=== PATIENT | male | born 1995 | race Caucasian/White ===

== ENCOUNTER 2019-03-07 16:17 | Emergency (ER) | payer MEDICAID ==
[~2019-03-07] VITALS: Ht 180.3 cm; Wt 98.6 kg
--- NOTE | 2019-03-07 16:32 | NUR ---
patient arrives to er with chest pressure and sob exertion that began yesterday. he went to [facility] and had bloodwork and xray but left before ct. patient has continued chest pressure and sob today so he came back to [place]. on monitor
[2019-03-07 17:36] LABS: BASOPHILS # (AUTO) 0.04 x10^3/uL (0-0.1); BASOPHILS % (AUTO) 0 % (0-1); EOSINOPHILS # (AUTO) 0.09 x10^3/uL (0-0.4); EOSINOPHILS % (AUTO) 1 % (1-7); LYMPHOCYTES # (AUTO) 3.32 x10^3/uL (1-3.4); LYMPHOCYTES % (AUTO) 31 % (22-44); MD NO; MEAN CORPUSCULAR HEMOGLOBIN 31.8 pg (27.5-34.5); MEAN CORPUSCULAR HGB CONC 34.2 g/dL (33.2-36.2); MEAN CORPUSCULAR VOLUME 92.8 fL (81-97); MEAN PLATELET VOLUME 7.4 fL (7.4-10.4); MONOCYTES # (AUTO) 0.91 x10^3/uL (0.2-0.8); MONOCYTES % (AUTO) 9 % (2-9); NEUTROPHILS # (AUTO) 6.33 x10^3/uL (1.8-6.8); NEUTROPHILS % (AUTO) 59 % (42-75); PLATELET COUNT 307 x10^3/uL (130-400); RED BLOOD COUNT 5.09 x10^6/uL (4.38-5.82); RED CELL DISTRIBUTION WIDTH 13.4 % (9.4-14.8)
--- NOTE | 2019-03-07 17:40 | NUR ---
patient waiting for recheck
[2019-03-07 17:47] LABS: ANION GAP 6 mmol/L (5-15); CALCIUM 9.2 mg/dL (8.5-10.1); CHLORIDE 116 mmol/L (98-107); CREATININE 0.79 mg/dL (0.7-1.3)
[2019-03-07 17:51] LABS: TROPONIN I < 0.015 ng/mL (0.000-0.045)
[2019-03-07 18:08] VITALS: BP 132/78
== END 2019-03-07 18:16 | disposition home or self-care (01) ==
LOC: ED 18:10
DX: R07.89 Other chest pain (principal); R42 Dizziness and giddiness
CPT/HCPCS: 36415; 80048; 84484; 85025; 85379; 93005; 99284

== ENCOUNTER 2019-03-13 22:33 | Emergency (ER) | payer MEDICAID ==
[~2019-03-13] VITALS: Ht 182.9 cm; Wt 98.4 kg
--- NOTE | 2019-03-13 23:11 | NUR ---
Patient states he was at work when he experienced SOB, CP, numbness/tinging in hands. He has experienced symptoms similar to this in the past but not to this extent. Pain is substernal and becomes slightly worse with deep breathing. He rates the pain as a 3/10 on the pain scale. Patient no longer has numbness/tingling. Patient is in no obvious distress. Respirations are even and unlabored.
[2019-03-13] MEDS ORDERED: OXAZEPAM 10 MG CAPSULE PO ONE (23:30)
--- NOTE | 2019-03-13 23:48 | NUR ---
Oxazepam ordered for patient; requested from pharmacy.
[2019-03-14 00:27] VITALS: BP 121/74
== END 2019-03-13 22:41 | disposition home or self-care (01) ==
LOC: ED 22:35
DX: F41.1 Generalized anxiety disorder (principal); R42 Dizziness and giddiness; F17.210 Nicotine dependence, cigarettes, uncomplicated; Z72.89 Other problems related to lifestyle
CPT/HCPCS: 93005; 99283; 99284

== ENCOUNTER 2019-09-23 10:37 | Emergency (ER) | payer SELFPAY ==
[~2019-09-23] VITALS: Ht 182.9 cm; Wt 99.3 kg
--- NOTE | 2019-09-23 11:08 | NUR ---
PROPOSAL DIRECTOR: PT TO ROOM VIA
[2019-09-23] MEDS ORDERED: KETOROLAC 30 MG/1 ML IM ONE (11:30)
[2019-09-23] MEDS ORDERED: KETOROLAC 30 MG/1 ML ONE (11:47)
[2019-09-23 12:31] VITALS: BP 125/78
--- NOTE | 2019-09-23 12:32 | NUR ---
BREAK RN: Patient/Caregiver given discharge instructions and they have confirmed that they understand the instructions. Patient ambulatory with crutches
== END 2019-09-23 12:33 | disposition home or self-care (01) ==
LOC: ED 12:25
DX: S93.402A Sprain of unspecified ligament of left ankle, initial encounter (principal); S93.602A Unspecified sprain of left foot, initial encounter; G89.11 Acute pain due to trauma; F17.290 Nicotine dependence, other tobacco product, uncomplicated; W01.0XXA Fall on same level from slipping, tripping and stumbling without subsequent striking against object, initial encounter; Y93.89 Activity, other specified; Y92.89 Other specified places as the place of occurrence of the external cause; Y99.8 Other external cause status
CPT/HCPCS: 73610; 73630; 96372; 99284; J1885